=== PATIENT | female | born 1955 | race Caucasian/White ===

== ENCOUNTER 2018-07-06 10:23 | Outpatient (CLI) | payer OTHER ==
--- NOTE | 2018-07-06 12:46 | RAD ---
LUMBAR SPINE 5 VIEWS: HISTORY: Low back pain. FINDINGS: Multilevel degenerative change is seen. There is minimal retrolisthesis of L4 over L5 and L2 over L3 vertebral bodies. No compression fracture or bony destruction is identified. No spondylosis is see n. IMPRESSION: Lumbar spondylosis. POS: ANIKA
--- NOTE | 2018-07-06 12:47 | RAD ---
BILATERAL SACROILIAC JOINTS 3 VIEWS: HISTORY: Pelvic pain, right greater than left. FINDINGS/IMPRESSION: Degenerative changes are seen in the SI joints on either side. POS: ANIKA
== END 2018-07-06 10:24 | disposition home or self-care (01) ==
LOC: BICRAD 10:23
PROVIDERS: ATTEND Internal Medicine
DX: M54.5 Low back pain (principal); G89.29 Other chronic pain; M53.3 Sacrococcygeal disorders, not elsewhere classified; M47.896 Other spondylosis, lumbar region
CPT/HCPCS: 72110; 72202

== ENCOUNTER 2018-07-12 15:36 | Outpatient (CLI) | payer OTHER | END 2018-07-12 15:37 | disposition home or self-care (01) | LOC: BICMAMMO 15:36 | PROVIDERS: ATTEND Internal Medicine | DX: Z12.31 Encounter for screening mammogram for malignant neoplasm of breast (principal) | CPT/HCPCS: 77063; 77067 ==

== ENCOUNTER 2019-07-17 08:44 | Outpatient (CLI) | payer OTHER ==
--- NOTE | 2019-07-17 10:20 | MMO ---
Bilateral MAMMO Bilat Screen [facility]. CLINICAL HISTORY: Patient is 63 years old and is seen for screening. The patient has no family history of breast cancer. The patient has no personal history of cancer. VIEWS: The views performed were: bilateral craniocaudal with tomosynthesis and bilateral mediolateral oblique with tomosynthesis. FILMS COMPARED: The present examination has been compared to prior imaging studies performed at [facility] on 11/21/2014, 05/21/2016, 06/30/2017 and 07/12/2018. This study has been interpreted with the assistance of computer-aided detection. MAMMOGRAM FINDINGS: There are scattered fibroglandular densities. There are no suspicious masses, suspicious calcifications, or new areas of architectural distortion. IMPRESSION: THERE IS NO MAMMOGRAPHIC EVIDENCE OF MALIGNANCY. A ROUTINE FOLLOW-UP MAMMOGRAM IN 1 YEAR IS RECOMMENDED. THE RESULTS OF THIS EXAM WERE SENT TO THE PATIENT. ACR BI-RADS Category 1 - Negative MAMMOGRAPHY NOTE: 1. A negative mammogram report should not delay a biopsy if a dominant of clinically suspicious mass is present. 2. Approximately 10% to 15% of breast cancers are not detected by mammography. 3. Adenosis and dense breasts may obscure an underlying neoplasm. Reported by: KATELYNN KUHN MD Electonically Signed: [id number]
== END 2019-07-17 08:45 | disposition home or self-care (01) ==
LOC: BICMAMMO 08:44
PROVIDERS: ATTEND Obstetrics & Gynecology
DX: Z12.31 Encounter for screening mammogram for malignant neoplasm of breast (principal)
CPT/HCPCS: 77063; 77067

== ENCOUNTER 2019-08-15 08:44 | Outpatient (CLI) | payer OTHER ==
--- NOTE | 2019-08-15 11:10 | BD ---
DEXA BONE DENSITY STUDY: Date: 08/15/19 HISTORY: 63-year-old postmenopausal female for screening for osteoporosis. FINDINGS: Lumbar Spine: BMD (g/cm2) L1 1.1.52 T-Score: 1.5 L2 1.263 T-Score: 2.1 L3 1.263 T-Score: 1.6 L4 1.241 T-Score: 1.6 L1-L4 1.228 T-Score: 1.6 Femoral Neck: 0.967 T-Score: 1.1 Total Femur: 1.260 T-Score: 2.6 IMPRESSION: Normal bone mineral density. POS: TPC
== END 2019-08-15 08:45 | disposition home or self-care (01) ==
LOC: BICMAMMO 08:44
PROVIDERS: ATTEND Internal Medicine
DX: Z13.820 Encounter for screening for osteoporosis (principal); Z78.0 Asymptomatic menopausal state
CPT/HCPCS: 77080

== ENCOUNTER 2020-08-05 10:45 | Outpatient (CLI) | payer OTHER ==
--- NOTE | 2020-08-05 13:27 | MMO ---
Bilateral MAMMO Bilat Screen [facility]. CLINICAL HISTORY: Patient is 64 years old and is seen for screening. The patient has no family history of breast cancer. The patient has no personal history of cancer. VIEWS: The views performed were: bilateral craniocaudal with tomosynthesis and bilateral mediolateral oblique with tomosynthesis. FILMS COMPARED: The present examination has been compared to prior imaging studies performed at [facility] on 05/21/2016, 06/30/2017, 07/12/2018 and 07/17/2019. This study has been interpreted with the assistance of computer-aided detection. MAMMOGRAM FINDINGS: There are scattered fibroglandular densities. There are no suspicious masses, suspicious calcifications, or new areas of architectural distortion. IMPRESSION: THERE IS NO MAMMOGRAPHIC EVIDENCE OF MALIGNANCY. A ROUTINE FOLLOW-UP MAMMOGRAM IN 1 YEAR IS RECOMMENDED. THE RESULTS OF THIS EXAM WERE SENT TO THE PATIENT. ACR BI-RADS Category 1 - Negative MAMMOGRAPHY NOTE: 1. A negative mammogram report should not delay a biopsy if a dominant of clinically suspicious mass is present. 2. Approximately 10% to 15% of breast cancers are not detected by mammography. 3. Adenosis and dense breasts may obscure an underlying neoplasm. Reported by: MICHI LEE MD Electonically Signed: [id number]
== END 2020-08-05 10:46 | disposition home or self-care (01) ==
LOC: BICMAMMO 10:45
PROVIDERS: ATTEND Internal Medicine
DX: Z12.31 Encounter for screening mammogram for malignant neoplasm of breast (principal)
CPT/HCPCS: 77063; 77067

== ENCOUNTER 2023-12-07 07:41 | Outpatient (CLI) | payer BC | END 2023-12-07 07:42 | disposition home or self-care (01) | LOC: BICMAMMO 07:41 | PROVIDERS: ATTEND Family Medicine | DX: Z12.31 Encounter for screening mammogram for malignant neoplasm of breast (principal) | CPT/HCPCS: 77063; 77067 ==

== ENCOUNTER 2025-05-03 12:46 | Outpatient (CLI) | payer MEDICARE, OTHER | END 2025-05-03 12:47 | disposition home or self-care (01) | LOC: BICMAMMO 12:46 | PROVIDERS: ATTEND Physician Assistant | DX: M81.0 Age-related osteoporosis without current pathological fracture (principal) | CPT/HCPCS: 77080 ==